=== PATIENT | male | born 1970 | race Two or more races ===

== ENCOUNTER 2019-01-05 11:04 | Emergency (ER) | payer BC ==
[~2019-01-05] VITALS: Ht 170.2 cm; Wt 112.9 kg
[2019-01-05 11:10] VITALS: BP 166/105
[2019-01-05] MEDS ORDERED: cefTRIAXone SOD 1,000 MG VL IM ONE (12:45)
[2019-01-05] MEDS ORDERED: ACETAMINOPHEN 325 MG TAB PO ONE (12:45)
[2019-01-05] MEDS ORDERED: TETANUS-DIPTH-ACEL PERTUSSIS 0.5ML SYRG IM ONE (12:45)
== END 2019-01-05 13:26 | disposition home or self-care (01) ==
LOC: ER 11:04
DX: S51.812A Laceration without foreign body of left forearm, initial encounter (principal); W54.0XXA Bitten by dog, initial encounter; Y93.89 Activity, other specified; Y92.89 Other specified places as the place of occurrence of the external cause; Y99.8 Other external cause status; I10 Essential (primary) hypertension
CPT/HCPCS: 12001; 73090; 90471; 90715; 96372; 99283; J0696